=== PATIENT | female | born 1975 | race Caucasian/White ===

== ENCOUNTER 2017-06-12 11:02 | Emergency (ER) | payer OTHER ==
[~2017-06-12] VITALS: Ht 160 cm; Wt 68.0 kg
[~2017-06-12 11:02] MED LIST: AZIT250T94 PO; CETI10CA PO; FLUT16SP17 NASAL; HYDR1CAP; NAPR-260 PO; [UNRECOGNIZED DRUG - REMARK]
[2017-06-12 11:13] VITALS: Ht 160 cm; Wt 68.0 kg
== END 2017-06-12 11:37 | disposition left against medical advice (07) ==
LOC: FTE 11:02 → E/R 11:37
DX: Z53.21 Procedure and treatment not carried out due to patient leaving prior to being seen by health care provider (principal)